=== PATIENT | female | born 1970 | race Caucasian/White ===

== ENCOUNTER → 2020-02-19 | Outpatient (CLI) | payer OTHER | END | disposition home or self-care (01) | LOC: LAB SHORT 13:48 | DX: B34.9 Viral infection, unspecified (principal); Z20.828 Contact with and (suspected) exposure to other viral communicable diseases | CPT/HCPCS: U0003 ==

== ENCOUNTER 2020-10-24 12:51 | Emergency (ER) | payer BC, OTHER ==
[~2020-10-24] VITALS: Ht 175.3 cm; Wt 90.7 kg
[2020-10-24] MEDS ORDERED: ALLEGRA ALLERG180 MG (17:19)
[2020-10-24] MEDS ORDERED: METO25ER (17:19)
[2020-10-24] MEDS ORDERED: MECL12.5 (17:19)
[2020-10-24] MEDS ORDERED: EUTHYROX50 MCG (17:19)
[2020-10-24 18:17] LABS: SARS-Cov-2 (COVID-19) PCR, MMC NEGATIVE (NEGATIVE)
[2020-10-24] MEDS ORDERED: Imitrex25 MG PO (22:38)
[2020-10-24] MEDS ORDERED: ZEBUTAL 50-3251 EAC1 PO (22:38)
== END 2020-10-24 22:51 | disposition home or self-care (01) ==
LOC: ER 12:51
PROVIDERS: Physician Assistant
DX: R51.9 Headache, unspecified (principal); R42 Dizziness and giddiness; E03.9 Hypothyroidism, unspecified; Z88.0 Allergy status to penicillin; Z88.8 Allergy status to other drugs, medicaments and biological substances; Z79.899 Other long term (current) drug therapy; Z20.822 Contact with and (suspected) exposure to COVID-19
CPT/HCPCS: 36415; 86308; 96365; 96372-59; 96375; 99284-25; J1100; J1200; J2765; J3030; J3475; J7030; U0004

== ENCOUNTER → 2021-09-14 | Outpatient (CLI) | payer BC, OTHER ==
[~2021-09-14] MED LIST: ALLEGRA ALLERG180 MG; EUTHYROX50 MCG; Imitrex25 MG PO; MECL12.5; METO25ER; ZEBUTAL 50-3251 EAC1 PO
== END | disposition home or self-care (01) ==
LOC: LAB 13:30 → LAB SHORT 13:30
DX: J02.9 Acute pharyngitis, unspecified (principal)
CPT/HCPCS: 87081

== ENCOUNTER → 2022-12-20 | Outpatient (CLI) | payer BC, OTHER | END | disposition home or self-care (01) | LOC: LAB SHORT 14:43 → LAB 14:43 | DX: N39.0 Urinary tract infection, site not specified (principal) | CPT/HCPCS: 87077; 87086; 87186 ==